=== PATIENT | male | born 1975 | race Two or more races ===

== ENCOUNTER → 2016-11-21 | Outpatient (CLI) | payer OTHER ==
[~2016-11-21] MED LIST: BACT800T; PERC5TAB8; REMERON15 PO
--- NOTE | 2016-11-21 11:27 | REP ---
LUMBAR SPINE, FIVE VIEWS: HISTORY: Pain. COMPARISON: 09/27/2008. The patient is status post L4-5 anterior and L4-S1 posterior spinal fusion and L4-5 laminectomy. Bone graft material is present anteriorly and metal rods and pedicle screws posteriorly. There is no acute fracture or subluxation. The L3-4 through L5-S1 intervertebral discs are decreased in height consistent with disc degeneration. Osteophytes are present on L3 and 4. The visualized facet joints are normal in appearance. IMPRESSION: 1. The patient is status post L4-5 anterior and L4-S1 posterior spinal fusion and L4-5 laminectomy. There is anatomic alignment. 2. Degenerative change as described above. Signed by Jhony Butler MD 11/21/2016 11:31 A
== END ==
LOC: M LRY 10:10
PROVIDERS: ATTEND Nurse Practitioner Family
DX: Z98.1 Arthrodesis status (principal)

== ENCOUNTER → 2018-09-27 | Outpatient (REF) | payer OTHER | LOC: M SFHCLERA 10:46 | PROVIDERS: ATTEND Nurse Practitioner Family | DX: J02.9 Acute pharyngitis, unspecified (principal) ==

== ENCOUNTER 2018-11-12 10:45 | Day surgery (SDC) | payer OTHER ==
[~2018-11-12] VITALS: Ht 177.8 cm; Wt 121.6 kg
[~2018-11-12 10:45] MED LIST changes: +ASPI81CH33 PO; +BACL1TAB8 PO; +DICL75TA PO; +DRIS50003 PO; +LIDOCAINE 2% INJ 100 MG/5 ML SDV (FOR ANES.) As Ordered ONE; +LISI-542 PO; +MULTTAB12 PO; +NS 1,000 ML IV ONE; +OMEP-218 PO; +OYST250T20 PO; +PRAZ1CAP PO; +PROPOFOL 200 MG/20 ML VIAL As Ordered ONE; +ROSU40TA3 PO
[2018-11-12] MEDS ORDERED: PROPOFOL 200 MG/20 ML VIAL As Ordered ONE (12:06)
--- NOTE | 2018-11-12 12:07 | ROOR ---
Patient Name: Reynold Lea Procedure Date: 11/12/2018 11:50 AM Date of : 1975 Age: 43 Room: [facility] Gender: Male Note Status: Finalized Procedure: Upper Endoscopy + Biopsies Indications: Heartburn, Exclusion of Monroy's esophagus Providers: Rommel Cotton MD Referring MD: Russ Land Md Requesting Provider: Medicines: Monitored Anesthesia Care Complications: No immediate complications. Procedure: Pre-Anesthesia Assessment: - The heart rate, respiratory rate, oxygen saturations, blood pressure, adequacy of pulmonary ventilation, and response to care were monitored throughout the procedure. The Endoscope was introduced through the mouth, and advanced to the second part of duodenum. The upper GI endoscopy was accomplished without difficulty. The patient tolerated the procedure well. Findings: The Z-line was irregular and was found 44 cm from the incisors. Multiple biopsies were obtained with cold forceps for evaluation to rule out Monroy's Esophagus randomly at the gastroesophageal junction. A medium-sized hiatal hernia was present. No other significant abnormalities were identified in a careful examination of the stomach. The exam of the duodenum was otherwise normal. Impression: - Z-line irregular, 44 cm from the incisors. - Medium-sized hiatal hernia. - Multiple biopsies were obtained at the gastroesophageal junction. - The examination was otherwise normal. Recommendation: - Patient has a contact number available for emergencies. The signs and symptoms of potential delayed complications were discussed with the patient. Return to normal activities tomorrow. Written discharge instructions were provided to the patient. - High fiber diet. - Discharge patient to home. - Continue present medications. - Follow an antireflux regimen. - Return to referring physician. - The findings and recommendations were discussed with the patient's family. Rommel Cotton MD Rommel Cotton MD 11/12/2018 12:07:03 PM Electronically signed by Rommel Cotton MD Number of Addenda: 0 Note Initiated On: 11/12/2018 11:50 AM Estimated Blood Loss: Estimated blood loss: none.
--- NOTE | 2018-11-12 12:22 | ROOR ---
Patient Name: Reynold Lea Procedure Date: 11/12/2018 11:53 AM Date of : 1975 Age: 43 Room: [facility] Gender: Male Note Status: Finalized Procedure: Total Colonoscopy to Cecum Indications: High risk colon cancer surveillance: Personal history of colonic polyps, Last colonoscopy: 2013 Providers: Rommel Cotton MD Referring MD: Russ Land Md Requesting Provider: Medicines: Monitored Anesthesia Care Complications: No immediate complications. Procedure: Pre-Anesthesia Assessment: - The heart rate, respiratory rate, oxygen saturations, blood pressure, adequacy of pulmonary ventilation, and response to care were monitored throughout the procedure. The Colonoscope was introduced through the anus and advanced to the cecum, identified by appendiceal orifice and ileocecal valve. The colonoscopy was performed without difficulty. The patient tolerated the procedure well. The quality of the bowel preparation was excellent. Findings: The perianal and digital rectal examinations were normal. Non-bleeding internal hemorrhoids were found during retroflexion. The hemorrhoids were small and Grade I (internal hemorrhoids that do not prolapse). No other significant abnormalities were identified in a careful examination of the remainder of the colon. The exam was otherwise without abnormality on direct and retroflexion views. Impression: - Non-bleeding internal hemorrhoids. - The examination was otherwise normal on direct and retroflexion views. - No specimens collected. - The exam was otherwise normal to the cecum. Recommendation: - Patient has a contact number available for emergencies. The signs and symptoms of potential delayed complications were discussed with the patient. Return to normal activities tomorrow. Written discharge instructions were provided to the patient. - High fiber diet. - Discharge patient to home. - Continue present medications. - Repeat colonoscopy in 5 years for surveillance. - Return to referring physician. - Telephone GI clinic for pathology results in 1 week. - The findings and recommendations were discussed with the patient's family. Rommel Cotton MD Rommel Cotton MD 11/12/2018 12:22:04 PM Electronically signed by Rommel Cotton MD Number of Addenda: 0 Note Initiated On: 11/12/2018 11:53 AM Estimated Blood Loss: Estimated blood loss: none.
[2018-11-12 12:40] VITALS: BP 136/88
== END 2018-11-12 12:45 | disposition home or self-care (01) ==
LOC: M OPP 10:45
PROVIDERS: ATTEND Internal Medicine Gastroenterology
DX: Z12.11 Encounter for screening for malignant neoplasm of colon (principal); Z86.010 Personal history of colon polyps; K64.0 First degree hemorrhoids; K22.8 Other specified diseases of esophagus; K44.9 Diaphragmatic hernia without obstruction or gangrene; R12 Heartburn; Z79.899 Other long term (current) drug therapy; Z88.8 Allergy status to other drugs, medicaments and biological substances
CPT/HCPCS: 43239; 88305; G0105